=== PATIENT | female | born 1950 | race Two or more races ===

== ENCOUNTER 2017-12-14 13:15 | Outpatient (CLI) | payer OTHER | END 2017-12-14 13:17 | disposition home or self-care (01) | LOC: NUCLEAR 13:15 | DX: M81.0 Age-related osteoporosis without current pathological fracture (principal); Z13.820 Encounter for screening for osteoporosis ==

== ENCOUNTER 2018-06-29 17:19 | Emergency (ER) | payer OTHER ==
[~2018-06-29] VITALS: Ht 165.1 cm; Wt 59.0 kg
[2018-06-29] MEDS ORDERED: SIMVASTATIN40 MG (17:34)
[2018-06-29] MEDS ORDERED: FOSAMAX70 MG (17:34)
== END 2018-06-29 22:01 | disposition home or self-care (01) ==
LOC: ER 17:19
DX: R55 Syncope and collapse (principal); R51 Headache; R06.02 Shortness of breath; F41.8 Other specified anxiety disorders

== ENCOUNTER 2020-03-08 15:10 | Outpatient (CLI) | payer OTHER ==
[~2020-03-08 15:10] MED LIST: FOSAMAX70 MG; SIMVASTATIN40 MG
== END 2020-03-08 15:16 | disposition home or self-care (01) ==
LOC: RAD 15:10
PROVIDERS: ATTEND Orthopaedic Surgery
DX: M25.551 Pain in right hip (principal); M25.552 Pain in left hip

== ENCOUNTER 2023-01-01 14:16 | Outpatient (CLI) | payer OTHER | END 2023-01-01 14:34 | disposition home or self-care (01) | LOC: NUCLEAR 14:16 | PROVIDERS: ATTEND Internal Medicine Sports Medicine | DX: M81.0 Age-related osteoporosis without current pathological fracture (principal) ==